=== PATIENT | female | born 1980 | race Caucasian/White ===

== ENCOUNTER 2023-11-27 14:17 | Outpatient (CLI) | payer BC, SELFPAY ==
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
== END 2023-11-27 14:18 | disposition home or self-care (01) ==
LOC: NFLDUCREF 14:19
PROVIDERS: PCP Physician Assistant Medical; Visit Provider Physician Assistant
DX: R07.9 Chest pain, unspecified (principal); R06.02 Shortness of breath
CPT/HCPCS: 84484; 85379